=== PATIENT | male | born 1980 | race Hispanic/Latino ===

== ENCOUNTER 2022-12-24 13:11 | Emergency (ER) | payer OTHER, SELFPAY ==
[2022-12-24 13:12] VITALS: BP 164/109; PULSE 128; RESP 25; TEMP 37.6; O2SAT 100; BMI 27.8
[2022-12-24 13:24] VITALS: BP 169/109; PULSE 111; RESP 24; O2SAT 99
--- NOTE | 2022-12-24 13:38 | EKG12_ITS ---
Test Reason : CHEST PAIN Blood Pressure : / mmHG Vent. Rate : 129 BPM Atrial Rate : 129 BPM P-R Int : 136 ms QRS Dur : 086 ms QT Int : 290 ms P-R-T Axes : 060 059 033 degrees QTc Int : 424 ms Sinus tachycardia Otherwise normal ECG Confirmed by HERNAN VALDIVIA, KATIE ([id number]), editor newspaper FAHAD HODGE ([id number]) on 12/26/2022 2:10:02 PM Referred By: KANNAN Confirmed By:KATIE BECERRA MD
--- NOTE | 2022-12-24 13:41 | EDS_ITS ---
HPI <GENESIS Swenson - Last Filed: 12/24/22 15:55> History of Present Illness Chief Complaint: Chest Pain Narrative Narrative: Patient presenting today with left-sided chest pain that he has had intermittently over the past 2 days. Patient woke up this morning and felt generalized facial numbness, felt like his face was twitching, and felt like his arms and hands are numb bilaterally. He no longer has facial numbness but still feels like his hands are numb. Patient also reports feeling short of breath. Patient does not speak Tunisian and is [place]-speaking but has an playground monitor in the room. Manager Of Transportation is concerned that patient is having a heart attack. Patient has no history of cardiac disease or blood clots. He denies abdominal pain, nausea, vomiting, and fever. PFSH <GENESIS Swenson - Last Filed: 12/24/22 15:55> PFS Medical History HTN (hypertension) Allergy/AdvReac Type Severity Reaction Status Date / Time No Known Allergies Allergy Verified 12/24/22 13:16 Social History Smoking Status: Never smoker EXAM <GENESIS Swenson - Last Filed: 12/24/22 15:55> Physical Exam Const Vital Signs: 12/24/22 13:12 12/24/22 13:24 12/24/22 13:24 Temperature 99.7 F H Temperature Source Temporal Pulse Rate 128 H 111 H Respiratory Rate 25 H 24 H Respiratory Effort Short of Breath Blood Pressure 164/109 H 169/109 H Blood Pressure Mean 127 129 Pulse Ox 100 99 Oxygen Delivery Method Room Air Room Air 12/24/22 15:37 Temperature Temperature Source Pulse Rate 88 Respiratory Rate 16 Respiratory Effort Blood Pressure 145/86 H Blood Pressure Mean 105 Pulse Ox 99 Oxygen Delivery Method Room Air <Dr. Kody Ram MD - Last Filed: 12/24/22 14:26> Physical Exam Const Vital Signs: 12/24/22 13:12 12/24/22 13:24 12/24/22 13:24 Temperature 99.7 F H Temperature Source Temporal Pulse Rate 128 H 111 H Respiratory Rate 25 H 24 H Respiratory Effort Short of Breath Blood Pressure 164/109 H 169/109 H Blood Pressure Mean 127 129 Pulse Ox 100 99 Oxygen Delivery Method Room Air Room Air 12/24/22 15:37 Temperature Temperature Source Pulse Rate 88 Respiratory Rate 16 Respiratory Effort Blood Pressure 145/86 H Blood Pressure Mean 105 Pulse Ox 99 Oxygen Delivery Method Room Air [facility] <GENESIS Swenson - Last Filed: 12/24/22 15:55> [facility] Narrative Medical decision making narrative: Patient presenting due to left-sided chest pain as well as feelings of numbness to his face and arms bilaterally. Patient's neurologic exam is normal. He appears to be anxious and is breathing heavy. Patient's playground monitor states that he has been under a lot of stress lately, the majority of his family is not here in the states with him. Labs obtained to rule out ACS and troponin is WNL, EKG does not show any ST elevation. Chest x-ray without any pneumothorax, infiltrate, or cardiopulmonary abnormality. Patient was given a dose of Ativan and reassessed. He states that his symptoms have almost completely resolved and he is feeling much better. He no longer has any of the numbness or the chest pain. It is likely that patient's symptoms are attributed to his anxiety. He does not have a PCP so I have given him a referral for one. He will be discharged home in stable condition and has been given return precautions. He is comfortable with plan. I have personally performed a face to face assessment of the patient and have reviewed the RANGEL Note. I performed a substantive portion of the visit including all aspects of the following. My olivas findings include: History is [42-year-old male does not speak Tunisian. Manager Of Transportation present in the room. Patient's been having intermittent numbness on both sides of his body. A lot of anxiety because he is here in [facility] and most of his family is still out of the country. He is also had some intermittent atypical nonexertional chest pain. No significant past medical history. No history of DVT or PE. Pain is not pleuritic. He has had no hemoptysis. No leg pain or swelling.] Exam is [well-appearing 42-year-old male. Vital signs are stable. He is afebrile. He does not look septic or toxic. Pulse ox 100% on room air no signs of hypoxia. H EENT exam unremarkable. Neck nontender no lymphadenopathy. Lungs clear to auscultation bilaterally. Heart tachycardic rate about 110 no murmur. Chest wall nontender. Abdomen soft nontender. Moving all 4 extremities. Calves are nontender without edema or cords. Radial pulses are equal and symmetrical. Neurologically is awake and alert with no focal motor deficits. He does appear to be anxious.] Medical Decision Making [42-year-old with atypical, nonreproducible chest pain. Cardiac work-up is negative. Including a negative D-dimer and troponin. Clinically I think this is from anxiety and panic attack. He will be given a dose of Ativan and reassess.] Other additions or changes: [None] Lab Data Labs: Laboratory Results - last 24 hr 12/24/22 12/24/22 12/24/22 13:17 13:17 13:17 WBC 7.1 RBC 5.09 Hgb 15.7 Hct 45.4 MCV 89.2 MCH 30.8 MCHC 34.6 RDW Std Deviation 46.5 H RDW Coeff of Lorenzo 14.1 Plt Count 240 MPV 9.8 Immature Gran % (Auto) 0.400 Neut % (Auto) 48.0 Lymph % (Auto) 43.1 H [place] % (Auto) 7.0 Eos % (Auto) 0.4 Baso % (Auto) 1.1 H Absolute Neuts (auto) 3.4 Absolute Lymphs (auto) 3.04 Nucleated RBC % 0 D-Dimer Quant (PE/DVT) < 0.27 L Sodium 136 Potassium 3.6 Chloride 103 Carbon Dioxide 28.0 Anion Gap 5 BUN 11 Creatinine 0.95 Estim Creat Clear Calc 79.82 Est GFR (MDRD) Af Amer 113 Est GFR (MDRD) Non-Af 93 BUN/Creatinine Ratio 11.6 Glucose 133 H Calcium 8.6 Troponin I High Sens 5 Radiography Diagnostic Testing: Clinical Impression(s) from Imaging Studies Chest X-Ray 12/24/22 13:56 IMPRESSION: No radiographic evidence of acute cardiopulmonary disease. Electronically Signed: Aden Hope MD, NARCISA at 14:13 EDT , EKG Initial EKG: Comments: 129 bpm, sinus tachycardia, no ST elevation, reviewed and interpreted by attending ED physician. <Dr. Kody Ram MD - Last Filed: 12/24/22 14:26> [facility] MDM Narrative Medical decision making narrative: I have personally performed a face to face assessment of the patient and have reviewed the RANGEL Note. I performed a substantive portion of the visit including all aspects of the following. My olivas findings include: History is [42-year-old male does not speak Tunisian. Manager Of Transportation present in the room. Patient's been having intermittent numbness on both sides of his body. A lot of anxiety because he is here in [facility] and most of his family is still out of the country. He is also had some intermittent atypical nonexertional chest pain. No significant past medical history. No history of DVT or PE. Pain is not pleuritic. He has had no hemoptysis. No leg pain or swelling.] Exam is [well-appearing 42-year-old male. Vital signs are stable. He is afebrile. He does not look septic or toxic. Pulse ox 100% on room air no signs of hypoxia. H EENT exam unremarkable. Neck nontender no lymphadenopathy. Lungs clear to auscultation bilaterally. Heart tachycardic rate about 110 no murmur. Chest wall nontender. Abdomen soft nontender. Moving all 4 extremi ties. Calves are nontender without edema or cords. Radial pulses are equal and symmetrical. Neurologically is awake and alert with no focal motor deficits. He does appear to be anxious.] Medical Decision Making [42-year-old with atypical, nonreproducible chest pain. Cardiac work-up is negative. Including a negative D-dimer and troponin. Clinically I think this is from anxiety and panic attack. He will be given a dose of Ativan and reassess.] Other additions or changes: [None] History & Record Review Discussion w/independent historian: Patient and Friend Lab Data Attestation: I reviewed the patient's lab results. Lab results narrative: Seen BC normal. Electrolytes normal. Normal gap. Normal BUN and creatinine. Glucose 133. D-dimer negative. Troponin normal at 5. Normal chest x-ray and EKG. Labs: Laboratory Results - last 24 hr 12/24/22 12/24/22 12/24/22 13:17 13:17 13:17 WBC 7.1 RBC 5.09 Hgb 15.7 Hct 45.4 MCV 89.2 MCH 30.8 MCHC 34.6 RDW Std Deviation 46.5 H RDW Coeff of Lorenzo 14.1 Plt Count 240 MPV 9.8 Immature Gran % (Auto) 0.400 Neut % (Auto) 48.0 Lymph % (Auto) 43.1 H [place] % (Auto) 7.0 Eos % (Auto) 0.4 Baso % (Auto) 1.1 H Absolute Neuts (auto) 3.4 Absolute Lymphs (auto) 3.04 Nucleated RBC % 0 D-Dimer Quant (PE/DVT) < 0.27 L Sodium 136 Potassium 3.6 Chloride 103 Carbon Dioxide 28.0 Anion Gap 5 BUN 11 Creatinine 0.95 Estim Creat Clear Calc 79.82 Est GFR (MDRD) Af Amer 113 Est GFR (MDRD) Non-Af 93 BUN/Creatinine Ratio 11.6 Glucose 133 H Calcium 8.6 Troponin I High Sens 5 Radiography Chest X-Ray - ED: 1 View, Read by ED Physician, Normal, Heart, Lungs, Mediastinum and Bony Structures Diagnostic Testing: Clinical Impression(s) from Imaging Studies Chest X-Ray 12/24/22 13:56 IMPRESSION: No radiographic evidence of acute cardiopulmonary disease. Electronically Signed: Aden Hope MD, NARCISA at 14:13 EDT Reading Location ID and State: [facility] / [place] Tel , Service support , Chest x-ray, portable, single view interpreted both myself and the no acute abnormality. Normal cardiac silhouette and mediastinum. Discharge Plan Triage Chief Complaint: Chest Pain ED Midlevel Provider: Bhumika Cleary ED Provider: Kody Ram Dx/Rx/DC Orders Clinical Impression: Anxiety, Chest pain Primary Care Provider: Care Physician,No Primary Referrals: Courtney Mueller MD [Med Staff - Active Staff] - 3-5 Days NOT,DEFINED [Non-Staff] - Activity Restrictions/Additional Instructions: Return for any worsening of symptoms, please follow-up with the PCP I referred you to. Disposition Disposition: Home, Self Care Discharge Date/Time: 12/24/22 15:48
[2022-12-24 13:51] LABS: Absolute Lymphocyte Count 3.04 X10^3/uL (0.83-4.51); Absolute Neutrophil Count 3.4 X10^3/uL (2.0-7.7); Basophil# 0.08 X10^3/uL; Basophil% 1.1 % (0-1); Eosinophil# 0.03 X10^3/uL; Eosinophils% 0.4 % (0-5); Hematocrit 45.4 % (40-54); Hemoglobin 15.7 g/dL (13.0-16.5); Lymphocyte # 3.04 X10^3/ul (0.83-4.51); Lymphocyte % 43.1 % (19-41); Mean Corp Hgb Conc 34.6 g/dL (32-36); Mean Corpuscular Hgb 30.8 pg (27.0-32.0); Mean Corpuscular Volume 89.2 fL (80-94); Mean Platelet Vol. 9.8 fl (6.2-12.0); Monocyte# 0.49 X10^3/uL; NRBC Flagged by Analyzer 0 % (0-5); Neutrophil # 3.38 X10^3/uL (2.7-7.7); Platelet Count 240 K/mm3 (150-450); RBC Distribution Width CV 14.1 % (11.6-14.6); RBC Distribution Width SD 46.5 fl (35.1-43.9); Red Blood Count 5.09 M/mm3 (4.6-6.2); White Blood Count 7.1 K/mm3 (4.4-11.0)
--- NOTE | 2022-12-24 13:56 | RAD_ITS ---
INDICATION: chest pain EXAMINATION/TECHNIQUE: X-RAY - XR Chest 1 View COMPARISON: None. FINDINGS: LINES/DEVICES: None. LUNGS: No consolidation, edema or effusion. No pneumothorax. MEDIASTINUM AND CARDIOVASCULAR STRUCTURES: Cardiac silhouette not enlarged. Central airways and mediastinal contour are unremarkable. BONES AND SOFT TISSUES: Unremarkable. RAD/Chest 1 View (Portable) IMPRESSION: No radiographic evidence of acute cardiopulmonary disease. Electronically Signed: Aden Hope MD, NARCISA at 14:13 EDT ,
[2022-12-24 14:01] LABS: D-Dimer Quantitative (DVT/PE) < 0.27 FEU/ug/m (0.27-0.49)
[2022-12-24 14:11] LABS: Anion Gap 5 (5-15); BUN 11 mg/dL (7-18); BUN/Creat Ratio 11.6 RATIO (10-20); Calcium,Total 8.6 mg/dL (8.5-10.1); Chloride 103 mmol/L (98-107); Creatinine, Serum 0.95 mg/dL (0.70-1.30); EST Glomerular Filtration Rate 93 mL/min (>60); Est Glom Filt Rate - Afr Amer 113 mL/min (>60); Estimated Creatinine Clearance 79.82 ml/min; Glucose 133 mg/dL (74-106); Potassium 3.6 mmol/L (3.5-5.1); Sodium Level 136 mmol/L (136-145); Troponin-I HS (w/2H Reflex) 5 pg/mL (3.0-78.0)
[2022-12-24] MEDS: LORazepam 2 MG/ML Syringe 1 MG IV (15:03)
[2022-12-24 15:37] VITALS: BP 145/86; PULSE 88; RESP 16; O2SAT 99
== END 2022-12-24 15:48 | disposition home or self-care (01) ==
PROVIDERS: Physician Assistant; Emergency Provider Emergency Medicine; Visit Provider Emergency Medicine
DX: F41.9 Anxiety disorder, unspecified (principal); R07.9 Chest pain, unspecified; I10 Essential (primary) hypertension
CPT/HCPCS: 71045; 80048; 84484; 85025; 85379; 93005; 96374; 99284